=== PATIENT | female | born 1950 | race Caucasian/White ===

== ENCOUNTER 2016-10-12 18:40 | Emergency (ER) | payer MEDICARE, OTHER ==
[2016-10-12] MEDS ORDERED: SODIUM CHLORIDE 0.9% 1,000 ML ONE (19:42)
[2016-10-12] MEDS ORDERED: PROPOFOL 20 ML 20 ML IV ONE (19:46)
[2016-10-12] MEDS ORDERED: FENTANYL 100 MCG/2 ML AMP ONE (19:48)
[2016-10-12] MEDS ORDERED: OXYCODONE/APAP 5/325 TAB ONE (21:23)
== END 2016-10-12 21:38 | disposition home or self-care (01) ==
LOC: ER 18:40
DX: S52.132A Displaced fracture of neck of left radius, initial encounter for closed fracture (principal); W07.XXXA Fall from chair, initial encounter; Y93.89 Activity, other specified; Y92.098 Other place in other non-institutional residence as the place of occurrence of the external cause; Z79.899 Other long term (current) drug therapy; Z79.82 Long term (current) use of aspirin
CPT/HCPCS: 36415; 73100; 73110; 80053; 85025; 85610; 85730; 93005; 96361; 96374; 99284; J2704; J3010